=== PATIENT | female | born 1985 | race Caucasian/White ===

== ENCOUNTER → 2018-04-02 | Outpatient (CLI) | payer OTHER ==
--- NOTE | 2018-04-02 16:14 | WOMENS IMAGING REPORT ---
EXAM DESCRIPTION: BILAT SCREENING MAMMO W/CAD COMPLETED DATE/TIME: 04/02/2018 2:27 pm REASON FOR STUDY: SCREENING MAMMO Z80.3 FAMILY HISTORY OF MALIGNANT NEOPLASM OF BREAST COMPARISON: Baseline study TECHNIQUE: Standard craniocaudal and mediolateral oblique views of each breast recorded using digita l acquisition. LIMITATIONS: None. FINDINGS: Findings present which are benign by mammographic criteria. No suspicious masses, calcifi cations or architectural distortion. Pertinent benign findings: Benign bilateral breast parenchymal calcifications Read with the assistance of CAD. .[facility] - R2 C[employer] Version 1.3 .[facility] - R2 Cenova Version 1.3 .[facility] - R2 Cenova Version 2.4 .[facility] - R2 Cenova Version 2.4 .[facility] - R2 [employer] Version 9.2 Benign mammographic findings may include one or more of the following: Smooth masses, popcorn/rim/co arse calcifications, asymmetries, post-procedure changes, and lesions with long-standing stability. IMPRESSION: BENIGN MAMMOGRAPHIC FINDINGS. BIRADS 2 BREAST DENSITY: b. There are scattered areas of fibroglandular density. BIRAD: 2 BENIGN FINDING(S) RECOMMENDATION: ROUTINE SCREENING Please continue yearly bilateral screening mammography/tomosynthesis in April 2019 COMMENT: The patient has been notified of the results by letter per [place] requirements. Additional no tification policies are in place for contacting patient with suspicious or incomplete findings. Quality ID #[id number]: The [employer] recommends an annual screening mammogram for women aged 40 years or over. This facility utilizes a reminder system to ensure that all patients receive reminder letters, and/or direct phone calls for appointments. This includes reminders for routine scr eening mammograms, diagnostic mammograms, or other Breast Imaging Interventions when appropriate. Th is patient will be placed in the appropriate reminder system. The [employer] ([employer]) has developed recommendations for screening MRI of the breast s in certain patient populations, to be used in conjunction with mammography. Breast MRI surveillanc e may be appropriate for women with more than 20% lifetime risk of developing breast cancer as deter mined by genetic testing, significant family history of the disease, or history of mantle radiation f or Hodgkins Disease. ACR Practice Guidelines 2008. TECHNICAL DOCUMENTATION: FINDING NUMBER: (1) ASSESSMENT: (1) JOB ID: [id number] [employer]- All Rights Reserved Reading location - IP/workstation name: [email or web address]
== END ==
LOC: WI 13:57
PROVIDERS: ATTEND Physician Assistant Medical
DX: Z80.3 Family history of malignant neoplasm of breast (principal)
CPT/HCPCS: 77067

== ENCOUNTER → 2018-10-27 | Outpatient (CLI) | payer OTHER ==
--- NOTE | 2018-10-27 10:36 | RADIOLOGY REPORT (SQ) ---
EXAM DESCRIPTION: MRI BREAST BILATERAL W/WO COMPLETED DATE/TIME: 10/27/2018 8:22 am REASON FOR STUDY: FAMILY HISTORY OF CARRIER OF GENETIC DISEASE Z84.81 FAMILY HISTORY OF CARRIER OF GENETIC DISEASE COMPARISON: None. PATHOLOGIC CORRELATION: Mammograms 04/02/2018 CONTRAST TYPE AND DOSE: 20 mL Dotarem. RENAL FUNCTION: GFR > 60. TECHNIQUE: MR imaging performed with a dedicated breast coil. Pre contrast T1 and T2 weighted images . Pre contrast and post contrast enhanced T1 weighted images with fat saturation. Subtraction images, 3D thick and thin MIPS, and kinetic analysis performed on an independent workstat ion. ([employer] workstation) Magnet strength: 1.5 T LIMITATIONS: None. FINDINGS: BREAST DENSITY: b. There are scattered areas of fibroglandular density. BACKGROUND PARENCHYMAL ENHANCEMENT:Mild. RIGHT BREAST: No enhancing or suspicious masses. No clumped, regional/segmental ductal enhancement. CHEST WALL: Normal tissue planes. No abnormal internal mammary nodes. AXILLA: Normal axillary and retro-pectoral nodes. LEFT BREAST:No enhancing or suspicious masses. No clumped, regional/segmental ductal enhancement. CHEST WALL: Normal tissue planes. No abnormal internal mammary nodes. AXILLA: Normal axillary and retro-pectoral nodes. OTHER:No identified liver, bone, or lung lesions. No other significant incidental findings. IMPRESSION: NORMAL MR OF THE BREASTS. BIRAD: RIGHT BREAST: 1 Negative. LEFT BREAST: 1 Negative. RECOMMENDATION: RECOMMENDED FOLLOW-UP: Annual high risk screening. TECHNICAL DOCUMENTATION: JOB ID: [id number] [employer]- All Rights Reserved Reading location - IP/workstation name: [email or web address]
== END ==
LOC: RAD 07:04
PROVIDERS: ATTEND Internal Medicine Hematology & Oncology
DX: Z84.81 Family history of carrier of genetic disease (principal)
CPT/HCPCS: 77049; A9576